=== PATIENT | female | born 1995 | race Caucasian/White ===

== ENCOUNTER 2019-09-28 07:11 | Day surgery (SDC) | payer OTHER ==
[~2019-09-28] VITALS: Ht 154.9 cm; Wt 52.2 kg
--- NOTE | ~2019-09-28 | OP ---
PATIENT NAME: MARI COX MEDICAL RECORD: [id number] :89 LOCATION:D.OPS ADMISSION DATE: SURGEON: JADEN NGUYEN MD DATE OF OPERATION: 09/28/2019 PREOPERATIVE DIAGNOSIS: Pilonidal cyst, infected. POSTOPERATIVE DIAGNOSIS: Pilonidal cyst, infected. PROCEDURE: Pilonidal cystectomy. SURGEON: Jaden Nguyen MD SALES REPRESENTATIVE GAS SERVICE: None. BLOOD LOSS: Minimal. ANESTHESIA: General. DRAINS: Times 1 (quarter-inch Rahel). COMPLICATIONS: None. The risks, possible complications and alternatives to the procedure were explained to the patient. She elects to proceed. OPERATIVE COURSE: The patient was conveyed to the operating room electively on 09/28/2019. General anesthesia was induced by the anesthesia staff. The patient was placed in the prone position with the buttocks taped laterally. The anus, perineum, and lower back were sterilely prepped and draped. Through a central pore at the top of the cleft, I inserted an Angiocath. Through this Angiocath, I was able to inject hydrogen peroxide and methylene blue. I checked the anus and there was no flow of the methylene blue out through the anus so no evidence of an anal fistula. Through use of double curvilinear incisions, I excised the skin and subcutaneous tissue down to the periosteum of the sacrum. Additional blue material was excised in a piecemeal fashion laterally as well as inferiorly to the left. Once all blue material had been excised, I irrigated with normal saline and then hydrogen peroxide. The deep tissues were closed with interrupted #1 Vicryls. Subcutaneous tissues were closed with multiple interrupted horizontal mattress 2-0 Vicryls. I then inserted a [place] drain between a few of these sutures. The drain was sutured to skin with a nylon suture. A sterile dressing was applied. The patient was then extubated and conveyed to post-anesthesia care unit. I will see her in the office in 1 week for drain removal and then in 3 weeks to have the sutures removed. 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
[~2019-09-28 07:11] MED LIST: EZFE 200200 MG PO; MULTI-DAY VITAM1 TAB PO
[2019-09-28 07:49] LABS: HEMOGLOBIN 12.9 g/dL (12-16); MCH 28.9 pg (26.0-34.0); MCHC 32.3 g/dL (31.0-37.0); MCV 89.5 fL (80.0-100.0); MEAN PLATELET VOLUME 10.6 fL (7.4-10.4); RBC 4.47 10x6/uL (4.00-5.40); RDW 13.8 % (11.5-14.5); WBC 10.3 10x3/uL (4.8-10.8)
[2019-09-28 08:03] LABS: HCG SERUM NEGATIVE (NEGATIVE)
[2019-09-28 08:59] VITALS: Ht 154.9 cm; Wt 52.2 kg
--- NOTE | 2019-09-28 14:38 | NUR ---
1427-NORCO 5/325MG 1 BY MOUTH ADMINISTERED FOR PAIN REPORTS 09/10.
--- NOTE | 2019-09-28 14:39 | NUR ---
1434-REMOVED IV WITH CATH INTACT,DISPOSED INTO SHARPS,COVERED WITH GUAZE,SECURED WITH MEDIPORE TAPE.REVIEWED POST OPERATIVE INSTRUCTIONS AND FOLLOW UP APPOINTMENT.VERBALIZED UNDERSTANDING. VSS.DRESSING CDI.NO DISTRESS. ESCORTED OUT VIA W/C WITH SPOUSE AWAITING TO DRIVE HOME.
== END 2019-09-28 14:34 | disposition home or self-care (01) ==
LOC: D.OPS 07:11
PROVIDERS: Anesthesiology; ATTEND Surgery
DX: L05.91 Pilonidal cyst without abscess (principal)